=== PATIENT | female | born 1980 | race Two or more races ===

== ENCOUNTER 2021-04-04 17:27 | Emergency (ER) | payer OTHER ==
[2021-04-04] MEDS ORDERED: METOCLOPRAMIDE 10 MG/2 ML VIAL IVP STA (17:46)
[2021-04-04] MEDS ORDERED: SODIUM CHLORIDE 0.9% 1,000 ML IV STA (17:46)
[2021-04-04] MEDS ORDERED: diphenhydrAMINE INJ 50 MG/ML VIAL IVP STA (17:46)
--- NOTE | 2021-04-04 17:47 | ED Physician Documentation ---
PD HPI HEADACHE - Stated complaint Stated Complaint: MIGRAINE - Chief complaint Chief Complaint: Neuro - History obtained from History obtained from: Patient - Additional information Additional information: 40-year-old woman with history of migraines generally controlled with Topamax as a preventative agent had a gradual onset headache over the course of an hour and a half yesterday that is more severe than most of her headaches. That said when queried if it is the worst headache of her life she said it is probably all part with it. Not necessarily the worst. It is a right retro-orbital headache with a lot of pressure in that area. It is associated with nausea, light sensitivity, sound sensitivity. It is not associated with fevers or neck stiffness although the pain does radiate to the neck. She states the quality is definitely different than most of her headaches and that her usual headaches are bilateral retro-orbital and this is just right-sided. It is associated with some tingling in the left arm. Review of Systems Ten Systems: 10 systems reviewed and negative Constitutional: denies: Fever, Chills Eyes: reports: Photophobia. denies: Loss of vision, Decreased vision Ears: denies: Ear pain Nose: denies: Rhinorrhea / runny nose PD PAST MEDICAL HISTORY - Present Medications Home Medications: Ambulatory Orders Medication Instructions Recorded Confirmed Topiramate [Topamax] 75 mg PO HS 04/04/21 04/04/21 - Allergies Allergies/Adverse Reactions: Allergies Allergy/AdvReac Type Severity Reaction Status Date / Time Sulfa (Sulfonamide Allergy Edema Verified 04/04/21 17:35 Antibiotics) PD ED PE NORMAL - Vitals Vital signs reviewed: Yes - General General: Alert and oriented X 3, Other (Appears uncomfortable and photophobic) - HEENT HEENT: PERRL, EOMI - Neck Neck: Supple, no meningeal sign, No bony TTP - Neuro Neuro: Alert and oriented X 3, health care law specialist 2-12 intact, No motor deficit, No sensory deficit, Normal speech, Other (Equal upper and lower extremity strength and sensation throughout.) Eye Opening: Spontaneous Motor: Obeys Commands Verbal: Oriented GCS Score: 15 - Psych Psych: Normal mood, Normal affect Results - Vitals Vitals: Vital Signs - 24 hr 04/04/21 04/04/21 17:30 18:47 Temperature 36.3 C L 36.6 C Heart Rate 65 65 Respiratory 16 14 Rate Blood Pressure 162/95 H 128/75 O2 Saturation 98 100 Oxygen O2 Source Room air - Rads (name of study) CTA angiography of the head is unremarkable without aneurysm or other abnormality Radiology: EMP read contemporaneously PD MEDICAL DECISION MAKING - ED course ED course: 40-year-old woman with gradual onset headache yesterday but very atypical for her migraines and in a different location. Otherwise does seem migrainous though. Given the atypicality CT angiography head was done unremarkable. After the administration of IV fluids, Benadryl, and metoclopramide she was feeling much better and requesting discharge albeit not pain-free. Departure - Departure Disposition: Home, Self Care Clinical Impression: Migraine Qualifiers: Migraine type: with aura Status migrainosus presence: with status migrainosus I ntractability: intractable Qualified Code(s): G43.111 - Migraine with aura, intractable, with status migrainosus Condition: Good Record reviewed to determine appropriate education?: Yes Instructions: ED Headache Migraine Comments: CTA angiography of the head is unremarkable without aneurysm or other abnormality For your headache tonight you received IV metoclopramide and Benadryl which was very helpful for you. Call your doctor to arrange a follow-up appointment, make the next available appointment. In the interim, return anytime if worse or if new symptoms develop.
[2021-04-04] MEDS ORDERED: IOPAMIDOL-300 100 ML VIAL ONE (17:55)
[2021-04-04 18:47] VITALS: BP 128/75
--- NOTE | 2021-04-04 18:57 | CT Report ---
PROCEDURE: ANGIO HEAD W/WO INDICATIONS: Headache CONTRAST: IV CONTRAST: Isovue 300 ml: 80 PO CONTRAST: *NO PO CONTRAST TECHNIQUE: Precontrast 4.5 mm thick angled axial sections acquired from the foramen magnum to the vertex. Afte r the administration of intravenous contrast, 1 mm thick sections acquired through the [place] of [place] is. Postcontrast 4.5 mm thick sections then re-acquired from the foramen magnum to the vertex. 3-di mensional valazes-nflpkejkw-mpirlyjwxx (MIP) and/or volume rendering reformats were acquired of the c entral intracranial vasculature. For radiation dose reduction, the following was used: automated ex posure control, adjustment of mA and/or kV according to patient size. COMPARISON: None FINDINGS: Image quality: Excellent. Anterior circulation: Intracranial internal carotid arteries are normal in size and flow. The flow within the paired anterior cerebral arteries is normal and symmetric. The flow within the middle cer ebral arteries is normal and symmetric. The anterior communicating artery is seen. No aneurysms are seen. Posterior circulation: Visualized portions of the vertebral arteries demonstrate normal caliber, and join to form a normal appearing basilar artery. Flow within the posterior cerebral arteries is norm al and symmetric. No aneurysms are seen. CSF spaces: Ventricles are normal in size and shape. Basal cisterns are patent. No extra-axial flu id collections. Brain: No midline shift. No intracranial bleeds or masses. Castro-white matter interface appears int act. Skull and face: Calvarium and facial bones appear intact, without suspicious lesions. Sinuses: Visualized sinuses and mastoids are clear. IMPRESSION: No acute intracranial abnormality. No intracranial aneurysm or other significant vascular abnormality identified. Reviewed by: Jose C Webster MD on 04/04/2021 6:56 PM PST Approved by: Jose C Webster MD on 04/04/2021 6:56 PM PST Station ID: [id number]
[2021-04-04] MEDS ORDERED: IOPAMIDOL-300 100 ML VIAL IVP ONE (19:21)
== END 2021-04-04 19:17 | disposition home or self-care (01) ==
LOC: ED 17:27
DX: G43.111 Migraine with aura, intractable, with status migrainosus (principal)
CPT/HCPCS: 70496; 96374; 99284; J1200; J2765; Q9967

== ENCOUNTER 2023-01-29 19:03 | Outpatient (CLI) | payer OTHER | END 2023-01-29 23:59 | disposition critical access hospital (66) | LOC: EMS 19:03 | DX: R00.0 Tachycardia, unspecified (principal) | CPT/HCPCS: A0425; A0429 ==

== ENCOUNTER 2023-01-29 19:25 | Emergency (ER) | payer OTHER ==
--- NOTE | 2023-01-29 19:34 | ED Physician Documentation ---
History of Present Illness - Stated complaint Stated Complaint: HIGH HR - History obtained from History obtained from: Patient, EMS - Additonal information Additional information: 42-year-old woman takes Lexapro and around 330 this afternoon taken Maxalt for migraine. She woke up about an hour and a half later with palpitations and rapid heart rate and anxiety. It is better now. No chest pain or trouble breathing. PD PAST MEDICAL HISTORY - Present Medications Home Medications: Ambulatory Orders Medication Instructions Recorded Confirmed Topiramate [Topamax] 75 mg PO HS 04/04/21 04/04/21 - Allergies Allergies/Adverse Reactions: Allergies Allergy/AdvReac Type Severity Reaction Status Date / Time Sulfa (Sulfonamide Allergy Edema Verified 01/29/23 19:37 Antibiotics) PD ED PE NORMAL - Vitals Vital signs reviewed: Yes - General General: Alert and oriented X 3, No acute distress - Cardiac Cardiac: RRR, No murmur - Respiratory Respiratory: No respiratory distress, Clear bilaterally - Abdomen Abdomen: Non tender - Extremities Extremities: Other (Normal lower extremity reflexes without hyperreflexia or clonus) - Neuro Neuro: Alert and oriented X 3, Normal speech Results - Vitals Vitals: Vital Signs - 24 hr 01/29/23 19:32 Temperature 36.1 C L Heart Rate 96 Respiratory 18 Rate Blood Pressure 152/86 H O2 Saturation 100 Oxygen O2 Source Room air - EKG (time done) 1934 EKG releavant findings:: EKG personally interpreted by author of this note. Relevant findings are: Rate: Rate (enter#) (89) Rhythm: NSR Rice: Normal Intervals: Normal [place] QRS: Normal Ischemia: Normal ST segments PD Medical Decision Making - ED course ED course: She has resolved rapid palpitations after combining Maxalt with Lexapro. The concern would be for serotonin syndrome, but she does not have this clinically and she is feeling better now. Departure - Departure Disposition: 01 Home, Self Care Clinical Impression: Palpitations Condition: Good Record reviewed to determine appropriate education?: Yes Instructions: ED Drug React Adverse Other Comments: There is an interaction between Lexapro and Maxalt that would cause rapid heart rate and in severe form actually can be dangerous. You are not showing any of the signs of that now and your symptoms are resolved. Talk to your doctor about an alternative to the Maxalt for your migraines going forward. Your EKG was normal. Although your blood pressure was high today you should just keep an eye out with your doctor as it is likely a stress response and not indicative of chronic blood pressure issues.
[2023-01-29 19:45] VITALS: BP 152/86; O2SAT 100
== END 2023-01-29 19:57 | disposition home or self-care (01) ==
LOC: EDUNIT# → ED 19:25
DX: R00.2 Palpitations (principal); R03.0 Elevated blood-pressure reading, without diagnosis of hypertension; Z79.899 Other long term (current) drug therapy
CPT/HCPCS: 93005; 99283

== ENCOUNTER 2023-02-15 07:28 | Outpatient (CLI) | payer OTHER ==
--- NOTE | 2023-02-15 12:08 | Ultrasound Report ---
PROCEDURE: Pelvic w/Transvaginal INDICATIONS: PELVIC PAIN TECHNIQUE: Real-time scanning was performed of the pelvic organs, with image documentation. Additional endovagi nal scanning was necessary due to incomplete visualization of the adnexal and endometrial structures by transabdominal scanning. COMPARISON: None. FINDINGS: Uterus: Uterus is retroverted and normal in size at 8.2 x 5.4 x 7.6 cm. The myometrium is heterogen eous. The endometrium measures 8 mm in combined thickness. Intrauterine device in place. There is t race fluid at the IUD tip. Multiple subserosal uterine fibroids. The largest measures 3.8 cm in the r ight anterior uterus. Additional fibroids including a 1.9 cm midline anterior fibroid, a 2.0 cm midli ne anterior fibroid and a 1.9 cm fundal fibroid. Ovaries: The right ovary measures 2.8 x 1.7 x 2.6 cm, with a calculated ovarian volume of 6.6 cc. Ri ght ovarian corpus pseudocyst measuring 1.7 cm. The left ovary measures 3.0 x 2.4 x 1.6 cm, with a ca lculated ovarian volume of 2.1 cc. The ovaries have a normal sonographic appearance. Less than 12 f ollicles can be seen in each ovary. No adnexal masses are seen. No cystic lesions measuring greater than 3 cm. Other: No pathologic free abdominal or pelvic fluid. IMPRESSION: 1.Leiomyomatous uterus with the largest fibroid measuring 3.8 cm. 2.Intrauterine device in appropriate position. There is trace fluid within the endometrium at the IUD tip, nonspecific. 3.Right ovarian corpus luteal cyst. Otherwise, the ovaries are normal in appearance. Reviewed by: Sean Machuca MD on 02/15/2023 12:07 PM PDT Approved by: Sean Machuca MD on 02/15/2023 12:07 PM PDT Station ID: [id number]
== END 2023-02-15 07:29 | disposition home or self-care (01) ==
LOC: DI 07:28
PROVIDERS: ATTEND Nurse Practitioner
DX: D25.2 Subserosal leiomyoma of uterus (principal); Z97.5 Presence of (intrauterine) contraceptive device; N83.11 Corpus luteum cyst of right ovary